=== PATIENT | female | born 1975 | race Caucasian/White ===

== ENCOUNTER → 2020-01-18 13:56 | Outpatient (BNVA) | payer BC, SELFPAY | PROVIDERS: Family Provider Nurse Practitioner Family; Visit Provider Nurse Practitioner Family | DX: R51 Headache (principal); J01.10 Acute frontal sinusitis, unspecified | CPT/HCPCS: 87804 ==

== ENCOUNTER → 2020-07-07 11:27 | Outpatient (BNVA) | payer BC, SELFPAY | PROVIDERS: Family Provider Nurse Practitioner Family; Visit Provider Family Medicine | DX: I10 Essential (primary) hypertension (principal); E03.9 Hypothyroidism, unspecified | CPT/HCPCS: 80053; 80061; 82043; 85025 ==

== ENCOUNTER → 2020-08-18 08:55 | Outpatient (BNVA) | payer BC, MEDICAID, SELFPAY | PROVIDERS: Family Provider Nurse Practitioner Family; Visit Provider Family Medicine | DX: E03.9 Hypothyroidism, unspecified (principal); Z20.2 Contact with and (suspected) exposure to infections with a predominantly sexual mode of transmission | CPT/HCPCS: 84443; 86592; 87491; 87591; 87661; 87806 ==

== ENCOUNTER → 2020-09-09 09:13 | Outpatient (BNVA) | payer BC, SELFPAY | PROVIDERS: Family Provider Nurse Practitioner Family; Visit Provider Family Medicine | DX: Z12.31 Encounter for screening mammogram for malignant neoplasm of breast (principal); Z01.419 Encounter for gynecological examination (general) (routine) without abnormal findings | CPT/HCPCS: 87070; 87205 ==

== ENCOUNTER 2020-09-20 08:13 | Outpatient (CLI) | payer BC, SELFPAY ==
--- NOTE | 2020-09-20 08:30 | MM_ITS ---
WS: [id number] Bilateral screening digital mammogram, 09/20/2020 Clinical Data: screening mammogram Comparison: None. Findings: The breast parenchymal pattern shows fibroglandular tissue No spiculated masses or clustered calcific ations are seen. There are no secondary signs of carcinoma. MM/[place] [id number] Impression: 1. Negative bilateral mammogram with no prior mammograms for review. 2. Recommend annual screening mammograms. BIRADS: 1-Negative FOLLOW UP: 1 Year Follow-up The CAD baggage security checker was used.
== END 2020-09-20 08:14 | disposition home or self-care (01) ==
PROVIDERS: PCP Family Medicine; Visit Provider Family Medicine
DX: Z12.31 Encounter for screening mammogram for malignant neoplasm of breast (principal)
CPT/HCPCS: 77067

== ENCOUNTER → 2021-03-08 09:17 | Outpatient (BNVA) | payer BC, SELFPAY | PROVIDERS: PCP Family Medicine; Visit Provider Family Medicine | DX: R60.0 Localized edema (principal) | CPT/HCPCS: 80048 ==

== ENCOUNTER → 2021-09-02 14:12 | Outpatient (BNVA) | payer BC, SELFPAY | PROVIDERS: PCP Family Medicine; Visit Provider Family Medicine | DX: I10 Essential (primary) hypertension (principal); K12.0 Recurrent oral aphthae; E03.9 Hypothyroidism, unspecified | CPT/HCPCS: 80053; 82043; 84443; 85025 ==

== ENCOUNTER → 2022-05-17 11:25 | Outpatient (BNVA) | payer BC, MEDICAID, SELFPAY | PROVIDERS: PCP Family Medicine; Visit Provider Family Medicine | DX: E03.9 Hypothyroidism, unspecified (principal) | CPT/HCPCS: 84443 ==

== ENCOUNTER → 2022-09-04 15:57 | Outpatient (BNVA) | payer BC, MEDICAID, SELFPAY | PROVIDERS: PCP Family Medicine; Visit Provider Family Medicine | DX: R35.0 Frequency of micturition (principal); Z13.6 Encounter for screening for cardiovascular disorders | CPT/HCPCS: 81003; 87086 ==

== ENCOUNTER → 2022-09-05 08:25 | Outpatient (BNVA) | payer BC, SELFPAY | PROVIDERS: PCP Family Medicine; Visit Provider Family Medicine | DX: Z13.6 Encounter for screening for cardiovascular disorders (principal) | CPT/HCPCS: 80053; 80061; 85025 ==

== ENCOUNTER → 2022-09-19 14:10 | Outpatient (BNVA) | payer BC, MEDICAID, SELFPAY | PROVIDERS: PCP Family Medicine; Visit Provider Family Medicine | DX: Z20.2 Contact with and (suspected) exposure to infections with a predominantly sexual mode of transmission (principal); N89.8 Other specified noninflammatory disorders of vagina | CPT/HCPCS: 87070; 87205; 87491; 87591; 87661 ==

== ENCOUNTER 2022-10-13 12:55 | Outpatient (CLI) | payer BC, MEDICAID, SELFPAY ==
--- NOTE | 2022-10-13 12:59 | MM_ITS ---
WS: [id number] BILATERAL 3D TOMOSYNTHESIS DIGITAL SCREENING MAMMOGRAPHY WITH CAD CLINICAL INFORMATION: screening mammogram HISTORY: Screening mammogram. Bilateral breast soreness COMPARISON: September 20, 2020 TECHNIQUE: Bilateral CC and MLO views. FINDINGS: Scattered fibroglandular densities bilaterally. No suspicious focal mass, asymmetry, calcifications, or architectural distortion. No evidence of malignancy. Punctate and lucent centered calcifications. MM/[id number] IMPRESSION: BI-RADS: 2-Benign FOLLOW UP: 1 Year Follow-up Recommend return to annual screening mammography.
== END 2022-10-13 12:56 | disposition home or self-care (01) ==
LOC: RAD 12:56
PROVIDERS: PCP Family Medicine; Visit Provider Family Medicine
DX: Z12.31 Encounter for screening mammogram for malignant neoplasm of breast (principal)
CPT/HCPCS: 77063; 77067

== ENCOUNTER → 2022-11-21 08:22 | Outpatient (BNVA) | payer BC, MEDICAID, SELFPAY | PROVIDERS: PCP Family Medicine; Visit Provider Family Medicine | DX: E03.9 Hypothyroidism, unspecified (principal); J30.2 Other seasonal allergic rhinitis; R60.0 Localized edema; I10 Essential (primary) hypertension | CPT/HCPCS: 84439; 84443 ==

== ENCOUNTER → 2023-08-10 08:43 | Outpatient (BNVA) | payer BC, MEDICAID, SELFPAY | PROVIDERS: PCP Family Medicine; Visit Provider Family Medicine | DX: I10 Essential (primary) hypertension (principal); E03.9 Hypothyroidism, unspecified; R06.2 Wheezing; Z12.31 Encounter for screening mammogram for malignant neoplasm of breast; J30.2 Other seasonal allergic rhinitis | CPT/HCPCS: 80053; 80061; 82043; 84443; 85025 ==

== ENCOUNTER 2023-10-22 07:57 | Outpatient (CLI) | payer BC, OTHER, SELFPAY ==
--- NOTE | 2023-10-22 08:02 | MM_ITS ---
WS: [id number] BILATERAL SCREENING DIGITAL TOMOSYNTHESIS MAMMOGRAM WITH CAD HISTORY: screening COMPARISON: 10/13/2022 and 09/20/2020 Bilateral CC and MLO views with tomosynthesis and synthetic mammography submitted. Computer aided det ection analyzed. Breast composition: There are scattered areas of fibroglandular density. No suspicious masses, microc alcifications or architectural distortion. Benign calcifications. IMPRESSION: MM/[place] [id number] BI-RADS: 2-Benign FOLLOW UP: 1 Year Follow-up
== END 2023-10-22 07:58 | disposition home or self-care (01) ==
LOC: RAD 07:58
PROVIDERS: PCP Family Medicine; Visit Provider Family Medicine
DX: Z12.31 Encounter for screening mammogram for malignant neoplasm of breast (principal)
CPT/HCPCS: 77063; 77067

== ENCOUNTER → 2024-01-29 13:53 | Outpatient (BNVA) | payer BC, MEDICAID, SELFPAY ==
[2023-11-08 10:43] VITALS: BP 139/71; BMI 54.5
== END ==
PROVIDERS: PCP Family Medicine; Referring Provider Nurse Practitioner Psychiatric/Mental Health; Visit Provider Internal Medicine
DX: Z79.899 Other long term (current) drug therapy (principal)
CPT/HCPCS: 93005

== ENCOUNTER → 2024-02-01 08:31 | Outpatient (BNVA) | payer BC, MEDICAID, SELFPAY ==
[2023-11-08 10:43] VITALS: BP 139/71; BMI 54.5
== END ==
PROVIDERS: PCP Family Medicine; Visit Provider Family Medicine
DX: E03.9 Hypothyroidism, unspecified (principal); I10 Essential (primary) hypertension; R60.0 Localized edema; J30.2 Other seasonal allergic rhinitis; N39.46 Mixed incontinence; R06.2 Wheezing
CPT/HCPCS: 84443

== ENCOUNTER 2024-07-30 08:05 | Day surgery (SDC) | payer BC, MEDICAID, SELFPAY ==
[2024-05-22 10:03] VITALS: BP 126/76; BMI 56.9
--- NOTE | 2024-07-30 01:59 | ANES.PREANE2 ---
Pre-Anesthetic Assessment Height/Weight: Height 5 ft 4 in Preop Diagnosis: Screening colonoscopy Operation Date: 07/30/24 09:15 Proposed Procedures p EGD- 99345 , 21693, G0105, Z12.11 , K21.9(Not Applicable) - DO christa Wallis Colonoscopy(Not Applicable) - Luke Edwards DO Social No alcohol and No tobacco Airway Submandibular: within normal limits Cervical ROM: within normal limits Mallampati: Class IV Dentition: full Anesthetic Plan ASA status: 3 Anesthesia: MAC Other: No prior issues with anesthesia Completed bowel prep History of hypertension on amlodipine and hydrochlorothiazide, as well as as metoprolol Hypothyroidism on Synthroid 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 Occasional inhalers GERD on Protonix BMI 57 Plan for MAC anesthetic Medications/Allergies Home Medications Medication Instructions Recorded Confirmed Last Taken Type cholecalciferol (vitamin D3) 50 50 mcg PO DAILY 02/09/21 07/29/24 07/29/24 History mcg (2,000 unit) capsule albuterol sulfate 90 mcg/actuation 2 puff inhalation Q6H PRN 09/07/23 07/29/24 07/29/24 Rx aerosol inhaler (Ventolin HFA) shortness of breath or wheezing #8.5 grams amlodipine 2.5 mg tablet (Norvasc) 2.5 mg PO DAILY #30 tabs 02/01/24 07/29/24 07/29/24 Rx divalproex 500 mg tablet,delayed 500 mg PO .7 pm #30 tabs 05/22/24 07/29/24 07/29/24 Rx release (Depakote) pantoprazole 40 mg tablet,delayed 40 mg PO BID 6 weeks #84 tabs 06/23/24 07/29/24 07/29/24 Rx release (Protonix) hydrochlorothiazide 25 mg tablet 25 mg PO DAILY 07/28/24 07/29/24 07/29/24 History levothyroxine 100 mcg tablet 100 mcg PO DAILY 07/28/24 07/29/24 07/30/24 07:00 History metoprolol succinate 25 mg 25 mg PO BEDTIME 07/28/24 07/29/24 07/29/24 History tablet,extended release 24 hr montelukast 10 mg tablet 10 mg PO BEDTIME 07/28/24 07/29/2407/29/24 History oxybutynin chloride 5 mg tablet 5 mg PO BID 07/28/24 07/29/24 07/29/24 History triamcinolone acetonide 0.1 % 1 applic topical TID PRN Itching 07/28/24 07/29/24 07/29/24 History topical cream Allergies Allergy/AdvReac Type Severity Reaction Status Date / Time ketorolac [From Toradol] AdvReac Severe unknown Verified 07/29/24 08:59 [facility] Anesthesia Medical History Screening for colon cancer 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, mixed episodes ADHD (attention deficit hyperactivity disorder), inattentive type Chronic post-traumatic stress disorder JEMAL (generalized anxiety disorder) Psychiatric care Hypothyroid Essential hypertension Surgical History History of lung surgery H/O: hysterectomy History of cholecystectomy Family History Other CAD (coronary artery disease) Lung disease Thyroid disease Social History Smoking and tobacco/nicotine status: never used tobacco/nicotine Alcohol intake: current Alcohol intake frequency: holidays/special occasions only Alcohol type: wine Substance/Drug Use: never Data Anesthesia Cardiac Studies: Cardiac Event Monitor 10/24/21
[2024-07-30 08:23] VITALS: BP 147/86; PULSE 74; RESP 18; TEMP 36.1; O2SAT 93; BMI 56.6
[2024-07-30] MEDS: sodium chloride 0.9% 1,000 ML 30 ML IV (08:30)
--- NOTE | 2024-07-30 09:13 | PM.HP ---
Providers/Chief Complaint Primary Care Provider: Ashlee Swanson DO Chief Complaint: Z12.11, K21.9 History of Present Illness Isabela Michaels is a 49 year old female Review of Systems General: Reports: 10 or more systems reviewed and unremarkable except in HPI and below Medications/Allergies Home Medications Medication Instructions Recorded Confirmed Last Taken Type cholecalciferol (vitamin D3) 50 50 mcg PO DAILY 02/09/21 07/29/24 07/29/24 History mcg (2,000 unit) capsule albuterol sulfate 90 mcg/actuation 2 puff inhalation Q6H PRN 09/07/23 07/29/24 07/29/24 Rx aerosol inhaler (Ventolin HFA) shortness of breath or wheezing #8.5 grams amlodipine 2.5 mg tablet (Norvasc) 2.5 mg PO DAILY #30 tabs 02/01/24 07/29/24 07/29/24 Rx divalproex 500 mg tablet,delayed 500 mg PO .7 pm #30 tabs 05/22/24 07/29/24 07/29/24 Rx release (Depakote) pantoprazole 40 mg tablet,delayed 40 mg PO BID 6 weeks #84 tabs 06/23/24 07/29/24 07/29/24 Rx release (Protonix) hydrochlorothiazide 25 mg tablet 25 mg PO DAILY 07/28/24 07/29/24 07/29/24 History levothyroxine 100 mcg tablet 100 mcg PO DAILY 07/28/24 07/29/24 07/30/24 07:00 History metoprolol succinate 25 mg 25 mg PO BEDTIME 07/28/24 07/29/24 07/29/24 History tablet,extended release 24 hr montelukast 10 mg tablet 10 mg PO BEDTIME 07/28/24 07/29/24 07/29/24 History oxybutynin chloride 5 mg tablet 5 mg PO BID 07/28/24 07/29/24 07/29/24 History triamcinolone acetonide 0.1 % 1 applic topical TID PRN Itching 07/28/24 07/29/24 07/29/24 History topical cream Allergies Allergy/AdvReac Type Severity Reaction Status Date / Time ketorolac [From Toradol] AdvReac Severe unknown Verified 07/29/24 08:59 PFSH Acute PFSH: Medical History Screening for colon cancer 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, mixed episodes ADHD (attention deficit hyperactivity disorder), inattentive type Chronic post-traumatic stress disorder JEMAL (generalized anxiety disorder) Psychiatric care Hypothyroid Essential hypertension Surgical History History of lung surgery H/O: hysterectomy History of cholecystectomy Family History Other CAD (coronary artery disease) Lung disease Thyroid disease Social History Smoking and tobacco/nicotine status: never used tobacco/nicotine Alcohol intake: current Alcohol intake frequency: holidays/special occasions only Alcohol type: wine Substance/Drug Use: never Vitals/I&O/Wt Last Vital Signs Temp 97 F L 07/30/24 08:23 Pulse 74 07/30/24 08:23 Resp 18 07/30/24 08:23 BP 147/86 07/30/24 08:23 Pulse Ox 93 07/30/24 08:23 O2 Del Method Room Air 07/30/24 08:23 Weight last 48 hrs Weight 330 lb A&P Assessment and plan (1) GI bleed: (2) GERD (gastroesophageal reflux disease): (3) Screening for colon cancer: Plan EGD and colonoscopy Attestations Medical Necessity Statement*: Home Coding Level of Care Code Acute Code for Chg Fwd Diagnoses GI bleed K92.2 GERD (gastroesophageal reflux disease) K21.9 Screening for colon cancer Z12.11
[2024-07-30 09:38] VITALS: BP 133/92; PULSE 73; RESP 16; TEMP 36.3; O2SAT 98
[2024-07-30 09:46] VITALS: BP 138/78; PULSE 79; RESP 18; O2SAT 98
--- NOTE | 2024-07-30 10:15 | ANE.PACU2 ---
Inpatient post-anesthesia follow up: Airway intact: Yes Vital signs: Temperature 97.3 F Pulse Rate 79 Respiratory Rate 18 Blood Pressure 138/78 Pulse Oximetry 98 Oxygen Delivery Me thod Room Air Oxygen Flow Rate Fraction of Inspir ed Oxygen Hydration adequate: Yes Nausea and vomiting: No Pain level: 1 Mental status: Baseline
== END 2024-07-30 10:15 | disposition home or self-care (01) ==
PROVIDERS: PCP Family Medicine; Visit Provider Surgery
PROC: 0DJ08ZZ Inspection of Upper Intestinal Tract, Via Natural or Artificial Opening Endoscopic (ICD-10-PCS; CPT 43235; principal; 2024-07-30 09:15)
PROC: 0DJD8ZZ Inspection of Lower Intestinal Tract, Via Natural or Artificial Opening Endoscopic (ICD-10-PCS; CPT 45378; 2024-07-30 09:15)
DX: Z12.11 Encounter for screening for malignant neoplasm of colon (principal); K64.8 Other hemorrhoids; K29.50 Unspecified chronic gastritis without bleeding; K21.9 Gastro-esophageal reflux disease without esophagitis; E03.9 Hypothyroidism, unspecified; I10 Essential (primary) hypertension
CPT/HCPCS: 43239; 45378; 88305; 88342; J2704; J3490; J7030

== ENCOUNTER → 2024-08-19 14:12 | Outpatient (BNVA) | payer BC, OTHER, SELFPAY ==
[2024-05-22 10:03] VITALS: BP 126/76; BMI 56.9
== END ==
PROVIDERS: PCP Family Medicine; Visit Provider Internal Medicine
DX: I49.8 Other specified cardiac arrhythmias (principal); I49.1 Atrial premature depolarization; R07.9 Chest pain, unspecified; Q24.8 Other specified congenital malformations of heart; R94.31 Abnormal electrocardiogram [ECG] [EKG]
CPT/HCPCS: 93005

== ENCOUNTER 2024-09-23 07:43 | Outpatient (CLI) | payer BC, OTHER, SELFPAY ==
[2024-05-22 10:03] VITALS: BP 126/76; BMI 56.9
--- NOTE | 2024-09-23 07:45 | USCV_ITS ---
BrandoIsabela menendez Age: 49 Gender: F : 1975 Exam Date: 09/23/2024 07:51 Ordering Phys: Dean Gurrola M.D ([email or web address]) Technologist: [place] [facility] [place] sob cp BP: 150 / 80 HR: 73 Rhythm: Sinus Technical Quality: Adequate MEASUREMENTS (Male / Female) Normal Values 2D ECHO LV Diastolic Diameter PLAX 5.2 cm 4.2 - 5.9 / 3.9 - 5.3 cm IVS Diastolic Thickness 1.3 cm 0.6 - 1.0 / 0.6 - 0.9 cm IVS Systolic Thickness 1.4 cm LVPW Diastolic Thickness 1.1 cm 0.6 - 1.0 / 0.6 - 0.9 cm LVPW Systolic Thickness 1.8 cm LVOT Diameter 2.0 cm LV Ejection Fraction 2D Teich 65.6 % LV Ejection Fraction MOD 4C 59.1 % LA Diameter 4.4 cm RA Systolic Volume 4C AL 47.0 ml RA Systolic Volume 4C MOD 46.1 ml Aorta at Sinotubular Diameter 3.1 cm IVC Diameter 2.3 cm DOPPLER AV Peak Velocity 129.0 cm/s LVOT Peak Velocity 74.0 cm/s AV Area Cont Eq vti 2.0 cm squared AV Area Cont Eq pk 1.9 cm squared MV Peak Velocity 109.0 cm/s MV Area PHT 3.0 cm squared Mitral E to A Ratio 1.3 TV Peak Velocity 206.3 cm/s TR Peak Velocity 316.0 cm/s TR Peak Gradient 39.9 mmHg TV Peak E Velocity 125.0 cm/s Right Atrial Pressure 3.0 mmHg Pulmonary Artery Systolic Pressu 42.9 mmHg PV Peak Velocity 117.0 cm/s FINDINGS Left Ventricle Left ventricle is normal in size. LV systolic function is normal with EF of 55 to 60%. No regional wall motion abnormalities. Right Ventricle Normal in size and function Right Atrium Normal in size Left Atrium Normal in size Mitral Valve Structurally normal mitral valve. Trace mitral regurgitation. Aortic Valve Structurally normal aortic valve. No significant stenosis or regurgitation. Tricuspid Valve Mild tricuspid regurgitation. Pulmonary artery systolic pressure is 40 to 45 mmHg. This is consistent with mild pulmonary hypertension. Pulmonic Valve Not well visualized Pericardium Normal Aorta Normal in size IVC Grossly normal CONCLUSIONS LV systolic function is normal with EF of 55-60% Trace mitral regurgitation Mild tricuspid regurgitation Mild pulmonary hypertension No comparison studies are available. Dean Gurrola MD (Electronically Signed) Final Date: 04 October 2024 13:17 S
== END 2024-09-23 07:44 | disposition home or self-care (01) ==
LOC: RAD 07:43
PROVIDERS: Visit Provider Internal Medicine
DX: R06.02 Shortness of breath (principal)
CPT/HCPCS: 93306

== ENCOUNTER → 2024-11-26 08:24 | Outpatient (BNVA) | payer BC, OTHER, SELFPAY ==
[2024-05-22 10:03] VITALS: BP 126/76; BMI 56.9
== END ==
DX: E03.9 Hypothyroidism, unspecified (principal); N39.46 Mixed incontinence; I10 Essential (primary) hypertension
CPT/HCPCS: 80053; 84439; 84443

== ENCOUNTER → 2025-01-20 08:50 | Outpatient (BNVA) | payer BC, SELFPAY ==
[2024-05-22 10:03] VITALS: BP 126/76; BMI 56.9
== END ==
PROVIDERS: Visit Provider Nurse Practitioner Psychiatric/Mental Health
DX: Z79.899 Other long term (current) drug therapy (principal)
CPT/HCPCS: 80164

== ENCOUNTER 2025-02-23 20:00 | Outpatient (CLI) | payer BC, SELFPAY ==
[2024-05-22 10:03] VITALS: BP 126/76; BMI 56.9
== END 2025-02-23 20:01 | disposition home or self-care (01) ==
LOC: SLEEP 02-24 03:36
PROVIDERS: Visit Provider Internal Medicine
DX: G47.33 Obstructive sleep apnea (adult) (pediatric) (principal); G47.36 Sleep related hypoventilation in conditions classified elsewhere
CPT/HCPCS: 95810

== ENCOUNTER → 2025-03-23 10:07 | Outpatient (BNVA) | payer BC, SELFPAY ==
[2024-05-22 10:03] VITALS: BP 126/76; BMI 56.9
== END ==
DX: E03.9 Hypothyroidism, unspecified (principal)
CPT/HCPCS: 80053; 84439; 84443

== ENCOUNTER 2025-04-02 14:16 | Emergency (ER) | payer BC, SELFPAY ==
[2025-04-02] VITALS (8 sets, daily range): BP systolic 126–172; BP diastolic 76–121; PULSE 70–87; RESP 18–22; TEMP 36.7; O2SAT 92–98; BMI 56.9
--- NOTE | 2025-04-02 14:20 | ECG_ITS ---
[facility] Date: 2025-04-02 Pat Name: Isabela Michaels Department: Room: Gender: Female Job Tr[employer]: : 1975 Requested By: Zak Valle Order Number: [id number] Sherwin MD: Amanda Jalloh M.D. Measurements Intervals [place] Rate: 81 P: 71 VT: 135 QRS: -32 QRSD: 90 T: 55 QT: 359 QTc: 419 Interpretive Statements SINUS RHYTHM LEFT AXIS DEVIATION [QRS AXIS < -30] LOW QRS VOLTAGE IN PRECORDIAL LEADS [QRS DEFLECTION < 1.0 mV IN CHEST LEADS] POSSIBLE ANTERIOR MYOCARDIAL INFARCTION , PROBABLY OLD [30 ms Q WAVE IN V3/V4, OR R < 0.2 mV IN V4] Compared to ECG 08/19/2024 14:20:51 Left-axis deviation now present Myocardial infarct finding still present Electronically Signed On 04-02-2025 18:01:27 CDT by Amanda Jalloh M.D. [email or web address]
--- NOTE | 2025-04-02 14:20 | XR_ITS ---
WS: [id number] Portable AP upright chest, 04/02/2025 Clinical Data: dyspnea/cough Comparison: None. Findings: There is complete opacification of the left lung. There is a shift of the mediastinum from right to left. The right lung shows no nodules, masses or effusions. The pulmonary vascularity is not increased. XR/XR chest 1V portable [id number] Impression: 1. Total opacification of left lung with shift of the heart and mediastinum fro m right to left. 2. Recommend CT scan of the chest to evaluate for left lung mass.
--- NOTE | 2025-04-02 14:36 | W.ED.SOB ---
Documented by User: Zak Connolly, 04/06/25 14:47 HPI - SOB/Dyspnea General: Chief Complaint: Shortness of Breath/Dyspnea Stated Complaint: SOB Time Seen by Provider: 04/02/25 14:19 History of Present Illness: HPI Narrative: 49-year-old female presents emergency room with complaint of cough and shortness of breath. 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 Evidently she did not require any kind chemo or radiation afterwards. I do not find any other documented history in the chart regarding this. She was seen by her primary care doctor today and her oxygen sat was in the 80s on arrival here she is on 3 L turned her down to 2 she meditated sats in the upper 90s. She denies any chest pain she has had productive cough no hemoptysis. No fever no abdominal pain Associated symptoms: Reports chest congestion; Deny abdominal pain, chest pain or fever(s) Related Data Home Medications ?Medication ?Instructions ?Recorded ?Confirmed cholecalciferol (vitamin D3) 50 50 mcg PO DAILY 02/09/21 04/02/25 mcg (2,000 unit) capsule triamcinolone acetonide 0.1 % 1 applic topical TID PRN Itching 07/28/24 04/02/25 topical cream guaifenesin 100 mg/5 mL oral liquid 200 mg PO Q4H PRN Cough 04/02/25 04/02/25 Previous Rx's ?Medication ?Instructions ?Recorded divalproex 500 mg tablet,delayed 500 mg PO .7 pm #30 tabs 01/20/25 release (Depakote) albuterol sulfate 90 mcg/actuation 2 puff inhalation Q6H PRN 03/23/25 aerosol inhaler (Ventolin HFA) shortness of breath or wheezing #8.5 grams amlodipine 2.5 mg tablet (Norvasc) 2.5 mg PO DAILY #30 tabs 03/23/25 hydrochlorothiazide 25 mg tablet 25 mg PO DAILY #30 tabs 03/23/25 levothyroxine 100 mcg tablet 100 mcg PO DAILY #30 tabs 03/23/25 metoprolol succinate 25 mg 25 mg PO BEDTIME #30 tabs 03/23/25 tablet,extended release 24 hr montelukast 10 mg tablet 10 mg PO BEDTIME #30 tabs 03/23/25 oxybutynin chloride 5 mg tablet 5 mg PO BID #60 tabs 03/23/25 levofloxacin 750 mg tablet 750 mg PO DAILY 10 days #10 tabs 04/02/25 Allergies Allergy/AdvReac Type Severity Reaction Status Date / Time ketorolac (From Toradol) AdvReac Severe unknown Verified 04/02/25 13:08 Review of Systems Const: Denies: fever(s) or chills Card: Denies: chest pain Resp: Reports: dyspnea, productive cough and chest congestion GI: Denies: abdominal pain : Denies: dysuria, urinary frequency or urinary urgency Musc: Denies: neck pain or back pain Skin/Breast: Denies: rash PFSH ED PFSH: Medical History Screening for colon cancer 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, mixed episodes Chronic post-traumatic stress disorder JEMAL (generalized anxiety disorder) Psychiatric care Hypothyroid Essential hypertension Surgical History History of lung surgery H/O: hysterectomy History of cholecystectomy Family History Other CAD (coronary artery disease) Lung disease Thyroid disease Social History Smoking and tobacco/nicotine status: never used tobacco/nicotine Alcohol intake: current Alcohol intake frequency: holidays/special occasions only Alcohol type: wine Substance/Drug Use: never Physical Exam Const: COMMON NORMALS: no acute distress GENERAL APPEARANCE: cooperative and comfortable ORIENTATION/CONSCIOUSNESS: Yes awake, Yes oriented to person, Yes oriented to place and Yes oriented to time HENMT: COMMON NORMALS: normocephalic, atraumatic and hearing grossly normal bilaterally HEAD & SCALP: normocephalic and atraumatic Resp: COMMON NORMALS: normal respiratory effort, No retractions and No use of accessory muscles OTHER: Lung sounds absent on the left significant rhonchi and wheeze on the right base. Cardio: COMMON NORMALS: regular rate, regular rhythm and No murmurs present (Cardio) RATE: regular rate RHYTHM: regular rhythm GI: COMMON NORMALS: Soft to palpation and No hepatosplenomegaly present AUSCULTATION: Yes normoactive bowel sounds PALPATION: Yes Soft to palpation, No Tenderness to palpation present (GI), No Guarding due to palpation present (GI) and Yes No hepatosplenomegaly present Extremity: COMMON NORMALS: capillary refill normal and no calf tenderness GENERAL: Yes edema (Bilateral lower) Neuro: SENSORIUM/ORIENTATION: Yes oriented to person, Yes oriented to place and Yes oriented to time Skin: COMMON NORMALS: no rashes or lesions noted GENERAL SKIN EXAM: no rashes or lesions noted Course Vital Signs: Vital signs: Vital Signs Temperature 98.1 F 04/02/25 14:36 Pulse Rate 87 04/02/25 22:15 Respiratory Rate 18 04/02/25 22:15 Blood Pressure 141/79 04/02/25 22:15 Pulse Oximetry 92 04/02/25 22:15 Oxygen Delivery Me thod Room Air 04/02/25 21:23 Oxygen Flow Rate 3 04/02/25 19:09 MDM - SOB/Dyspnea Medical Decision Making Care signed out to Dr. lambert at change of shift. See final notes for diagnosis and disposition. 49-year-old female presents to the emergency department for evaluation of shortness of breath and productive cough. Her CT was positive for signs of pneumonia. Given the patient's history patient was started on Levaquin. Her labs did not demonstrate elevated white count, her hemoglobin was normal, electrolytes were normal, kidney function was near baseline, urinalysis did not show signs of infection. Patient was able to maintain an O2 saturation between 88 and 92%. Given the fact that she has a single lung and an infection this is an acceptable oxygenation. Treatment plan was discussed with the patient and she was in agreement with this plan. Return precautions were discussed and the patient was discharged home in good condition. Lab Data 04/02/25 16:38 04/02/25 16:38 Labs/Radiology: Radiology Impressions Chest X-Ray 04/02/25 14:20 Impression: 1. Total opacification of left lung with shift of the heart and mediastinum from right to left. 2. Recommend CT scan of the chest to evaluate for left lung mass. Chest CT 04/02/25 20:16 IMPRESSION: 1. Status post left pneumonectomy with leftward mediastinal shift from left hemithoracic volume loss. 2. Patchy ground-glass opacities and tree-in-bud nodularity in the right lung likely represent atypical infection/inflammation. Focal consolidation in the medial right lower lobe could also represent infection. Consider imaging follow-up after clinical treatment to document resolution. 3. Mildly enlarged mediastinal and right hilar lymph nodes may be reactive. Attention on follow-up. 4. Mild mosaic attenuation in the right lung could represent mild edema and/or atypical infection in the acute setting common but findings can also be seen with air trapping from chronic small airways disease. 5. Dilated main pulmonary artery can be seen with pulmonary arterial hypertension. 6. Splenomegaly. 7. Hepatic steatosis. Laboratory Results WBC 5.33 10^3/uL (3.29-11.43) 04/02/25 16:38 Corrected WBC Cancelled 04/02/25 15:24 RBC 4.41 10^6/uL (3.85-5.65) 04/02/25 16:38 Hgb 13.80 g/dL (11.27-16.99) 04/02/25 16:38 Hct 43.2 % (36-47) 04/02/25 16:38 MCV 98.0 fl (85-98) 04/02/25 16:38 MCH 31.3 pg (27-33) 04/02/25 16:38 MCHC 31.9 g/dL (30-55) 04/02/25 16:38 RDW 14.2 % (12.1-15.1) 04/02/25 16:38 Plt Count 245 10^3/cmm (157-399) 04/02/25 16:38 MPV 11.2 fL (7.4-10.4) H 04/02/25 16:38 Gran % Cancelled 04/02/25 15:24 Neut % (Auto) 60.9 % 04/02/25 16:38 Lymph % (Auto) 19.9 % 04/02/25 16:38 [place] % (Auto) 16.3 % 04/02/25 16:38 Eos % (Auto) 1.9 % 04/02/25 16:38 Baso % (Auto) 0.8 % 04/02/25 16:38 Neut # (Auto) 3.25 10^3/uL (1.8-7.7) 04/02/25 16:38 Lymph # (Auto) 1.1 10^3/uL (0.8-4.8) 04/02/25 16:38 [place] # (Auto) 0.9 10^3/uL (0.2-0.9) 04/02/25 16:38 Eos # (Auto) 0.1 10^3/uL (0.0-0.8) 04/02/25 16:38 Baso # (Auto) 0.0 10^3/uL (0.0-0.1) 04/02/25 16:38 Absolute Gran (auto) Cancelled 04/02/25 15:24 Nucleated RBC % (auto) 0 % 04/02/25 16:38 Nucleated RBCs # 0.0 /100WBC 04/02/25 16:38 Sodium 141 mmol/L (136-145) 04/02/25 16:38 Potassium 3.9 mmol/L (3.5-5.1) 04/02/25 16:38 Chloride 97 mmol/L (98-107) L 04/02/25 16:38 Carbon Dioxide 31 mmol/L (22-29) H 04/02/25 16:38 Anion Gap 16.9 (5-19) 04/02/25 16:38 BUN 11 mg/dL (6-20) 04/02/25 16:38 Creatinine 0.8 mg/dL (0.5-0.9) 04/02/25 16:38 GFR Calculation 76.2 mL/min (90-130) L 04/02/25 16:38 Glucose 85 mg/dL (65-115) 04/02/25 16:38 Calculated Osmolality 291 mOsm/kg (285-295) 04/02/25 16:38 Calcium 8.5 mg/dL (8.5-10.5) 04/02/25 16:38 Total Bilirubin 0.3 mg/dL (0.15-1.2) 04/02/25 16:38 AST 18 U/L (0-32) 04/02/25 16:38 ALT 15 U/L (0-33) 04/02/25 16:38 Alkaline Phosphatase 62 U/L (35-105) 04/02/25 16:38 Total Protein 7.6 g/dL (6.6-8.7) 04/02/25 16:38 Albumin 3.9 g/dL (3.5-5.2) 04/02/25 16:38 Globulin 3.7 g/dL (1.3-4.6) 04/02/25 16:38 Urine Color Yellow (Yellow) 04/02/25 16:06 Urine Appearance Clear (CLEAR) 04/02/25 16:06 Urine pH 7.0 (5-7) 04/02/25 16:06 Ur Specific [place] 1.014 (1.005-1.030) 04/02/25 16:06 Urine Protein Negative (Negative) 04/02/25 16:06 Urine Glucose (UA) Negative (Normal) 04/02/25 16:06 Urine Ketones Negative (Negative) 04/02/25 16:06 Urine Blood Negative (Negative) 04/02/25 16:06 Urine Nitrate Negative (Negative) 04/02/25 16:06 Urine Bilirubin Negative (Negative) 04/02/25 16:06 Urine Urobilinogen 1.0 mg/dL (Negative) 04/02/25 16:06 Ur Leukocyte Esterase Negative (Negative) 04/02/25 16:06 Urine RBC 0-2 /hpf (0-2) 04/02/25 16:06 Urine WBC 0-5 /hpf (0-5) 04/02/25 16:06 Ur Squamous Epith Cells 0-5 /hpf (0-5) 04/02/25 16:06 Amorphous Sediment Not Reportable 04/02/25 16:06 Urine Bacteria None seen /hpf (NONE) 04/02/25 16:06 Hyaline Casts 1.65 /lpf 04/02/25 16:06 Discharge Plan Discharge Patient Disposition: Home Clinical Impression: Community acquired pneumonia Qualifiers: Laterality: right Lung location: middle lobe of lung Qualified Code(s): J18.9 - Pneumonia, unspecified organism Condition: Stable Prescriptions: New levofloxacin 750 mg tablet 750 mg PO DAILY 10 Days Qty: 10 0RF No Action cholecalciferol (vitamin D3) 50 mcg (2,000 unit) capsule 50 mcg PO DAILY divalproex [Depakote] 500 mg tablet,delayed release (DR/EC) 500 mg PO .7 pm Qty: 30 6RF Rx Instructions: Take one tablet at 7 pm oxybutynin chloride 5 mg tablet 5 mg PO BID Qty: 60 2RF montelukast 10 mg tablet 10 mg PO BEDTIME Qty: 30 0RF Rx Instructions: Take 1 tablet by mouth once daily amlodipine [Norvasc] 2.5 mg tablet 2.5 mg PO DAILY Qty: 30 5RF hydrochlorothiazide 25 mg tablet 25 mg PO DAILY Qty: 30 2RF levothyroxine 100 mcg tablet 100 mcg PO DAILY Qty: 30 2RF metoprolol succinate 25 mg tablet extended release 24 hr 25 mg PO BEDTIME Qty: 30 2RF albuterol sulfate [Ventolin HFA] 90 mcg/actuation HFA aerosol inhaler 2 puff inhalation Q6H PRN (Reason: shortness of breath or wheezing) Qty: 8.5 3RF triamcinolone acetonide 0.1 % cream 1 applic topical TID PRN (Reason: Itching) guaifenesin [Robitussin Chest Congestion] 100 mg/5 mL Liquid 200 mg PO Q4H PRN (Reason: Cough) Discharge Orders: Discharge ED (Routine); Ordered 04/02/25 Ordered By: Oliver Lambert Referrals: Maria M Luna, CHILD CARE DEVELOPMENT SPECIALIST [Primary Care Provider, Family Practice] Discharge Diet: Advance as tolerated Discharge Activity: Resume usual activity Patient Instructions: Opioid Safety, Pain Management Activity Restrictions/Additional Instructions: Please follow-up with your primary care physician for follow-up on your pneumonia. Please return the emergency department any new or worsening symptoms Print Language: Italian Coding Level of Care Code ED Traffic Safety Administrator for [facility]g Fwd Documented by User: Oliver Lambert DO 04/03/25 18:21 HPI - SOB/Dyspnea General: Chief Complaint: Shortness of Breath/Dyspnea Stated Complaint: SOB Time Seen by Provider: 04/02/25 14:19 Related Data Home Medications ?Medication ?Instructions ?Recorded ?Confirmed cholecalciferol (vitamin D3) 50 50 mcg PO DAILY 02/09/21 04/02/25 mcg (2,000 unit) capsule triamcinolone acetonide 0.1 % 1 applic topical TID PRN Itching 07/28/24 04/02/25 topical cream guaifenesin 100 mg/5 mL oral liquid 200 mg PO Q4H PRN Cough 04/02/25 04/02/25 Previous Rx's ?Medication ?Instructions ?Recorded divalproex 500 mg tablet,delayed 500 mg PO .7 pm #30 tabs 01/20/25 release (Depakote) albuterol sulfate 90 mcg/actuation 2 puff inhalation Q6H PRN 03/23/25 aerosol inhaler (Ventolin HFA) shortness of breath or wheezing #8.5 grams amlodipine 2.5 mg tablet (Norvasc) 2.5 mg PO DAILY #30 tabs 03/23/25 hydrochlorothiazide 25 mg tablet 25 mg PO DAILY #30 tabs 03/23/25 levothyroxine 100 mcg tablet 100 mcg PO DAILY #30 tabs 03/23/25 metoprolol succinate 25 mg 25 mg PO BEDTIME #30 tabs 03/23/25 tablet,extended release 24 hr montelukast 10 mg tablet 10 mg PO BEDTIME #30 tabs 03/23/25 oxybutynin chloride 5 mg tablet 5 mg PO BID #60 tabs 03/23/25 levofloxacin 750 mg tablet 750 mg PO DAILY 10 days #10 tabs 04/02/25 Allergies Allergy/AdvReac Type Severity Reaction Status Date / Time ketorolac (From Toradol) AdvReac Severe unknown Verified 04/02/25 13:08 [facility] ED PFSH: Medical History Screening for colon cancer 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, mixed episodes Chronic post-traumatic stress disorder JEMAL (generalized anxiety disorder) Psychiatric care Hypothyroid Essential hypertension Surgical History History of lung surgery H/O: hysterectomy History of cholecystectomy Family History Other CAD (coronary artery disease) Lung disease Thyroid disease Social History Smoking and tobacco/nicotine status: never used tobacco/nicotine Alcohol intake: current Alcohol intake frequency: holidays/special occasions only Alcohol type: wine Substance/Drug Use: never Course Vital Signs: Vital signs: Vital Signs Temperature 98.1 F 04/02/25 14:36 Pulse Rate 87 05/22/25 22:15 Respiratory Rate 18 04/02/25 22:15 Blood Pressure 141/79 04/02/25 22:15 Pulse Oximetry 92 04/02/25 22:15 Oxygen Delivery Me thod Room Air 04/02/25 21:23 Oxygen Flow Rate 3 04/02/25 19:09 MDM - SOB/Dyspnea Medical Decision Making 49-year-old female presents to the emergency department for evaluation of shortness of breath and productive cough. Her CT was positive for signs of pneumonia. Given the patient's history patient was started on Levaquin. Her labs did not demonstrate elevated white count, her hemoglobin was normal, electrolytes were normal, kidney function was near baseline, urinalysis did not show signs of infection. Patient was able to maintain an O2 saturation between 88 and 92%. Given the fact that she has a single lung and an infection this is an acceptable oxygenation. Treatment plan was discussed with the patient and she was in agreement with this plan. Return precautions were discussed and the patient was discharged home in good condition. Lab Data 04/02/25 16:38 04/02/25 16:38 Labs/Radiology: Radiology Impressions Chest X-Ray 04/02/25 14:20 Impression: 1. Total opacification of left lung with shift of the heart and mediastinum from right to left. 2. Recommend CT scan of the chest to evaluate for left lung mass. Chest CT 04/02/25 20:16 IMPRESSION: 1. Status post left pneumonectomy with leftward mediastinal shift from left hemithoracic volume loss. 2. Patchy ground-glass opacities and tree-in-bud nodularity in the right lung likely represent atypical infection/inflammation. Focal consolidation in the medial right lower lobe could also represent infection. Consider imaging follow-up after clinical treatment to document resolution. 3. Mildly enlarged mediastinal and right hilar lymph nodes may be reactive. Attention on follow-up. 4. Mild mosaic attenuation in the right lung could represent mild edema and/or atypical infection in the acute setting common but findings can also be seen with air trapping from chronic small airways disease. 5. Dilated main pulmonary artery can be seen with pulmonary arterial hypertension. 6. Splenomegaly. 7. Hepatic steatosis. Laboratory Results WBC 5.33 10^3/uL (3.29-11.43) 04/02/25 16:38 Corrected WBC Cancelled 04/02/25 15:24 RBC 4.41 10^6/uL (3.85-5.65) 04/02/25 16:38 Hgb 13.80 g/dL (11.27-16.99) 04/02/25 16:38 Hct 43.2 % (36-47) 04/02/25 16:38 MCV 98.0 fl (85-98) 04/02/25 16:38 MCH 31.3 pg (27-33) 04/02/25 16:38 MCHC 31.9 g/dL (30-55) 04/02/25 16:38 RDW 14.2 % (12.1-15.1) 04/02/25 16:38 Plt Count 245 10^3/cmm (157-399) 04/02/25 16:38 MPV 11.2 fL (7.4-10.4) H 04/02/25 16:38 Gran % Cancelled 04/02/25 15:24 Neut % (Auto) 60.9 % 04/02/25 16:38 Lymph % (Auto) 19.9 % 04/02/25 16:38 [place] % (Auto) 16.3 % 04/02/25 16:38 Eos % (Auto) 1.9 % 04/02/25 16:38 Baso % (Auto) 0.8 % 04/02/25 16:38 Neut # (Auto) 3.25 10^3/uL (1.8-7.7) 04/02/25 16:38 Lymph # (Auto) 1.1 10^3/uL (0.8-4.8) 04/02/25 16:38 [place] # (Auto) 0.9 10^3/uL (0.2-0.9) 04/02/25 16:38 Eos # (Auto) 0.1 10^3/uL (0.0-0.8) 04/02/25 16:38 Baso # (Auto) 0.0 10^3/uL (0.0-0.1) 04/02/25 16:38 Absolute Gran (auto) Cancelled 04/02/25 15:24 Nucleated RBC % (auto) 0 % 04/02/25 16:38 Nucleated RBCs # 0.0 /100WBC 04/02/25 16:38 Sodium 141 mmol/L (136-145) 04/02/25 16:38 Potassium 3.9 mmol/L (3.5-5.1) 04/02/25 16:38 Chloride 97 mmol/L (98-107) L 04/02/25 16:38 Carbon Dioxide 31 mmol/L (22-29) H 04/02/25 16:38 Anion Gap 16.9 (5-19) 04/02/25 16:38 BUN 11 mg/dL (6-20) 04/02/25 16:38 Creatinine 0.8 mg/dL (0.5-0.9) 04/02/25 16:38 GFR Calculation 76.2 mL/min (90-130) L 04/02/25 16:38 Glucose 85 mg/dL (65-115) 04/02/25 16:38 Calculated Osmolality 291 mOsm/kg (285-295) 04/02/25 16:38 Calcium 8.5 mg/dL (8.5-10.5) 04/02/25 16:38 Total Bilirubin 0.3 mg/dL (0.15-1.2) 04/02/25 16:38 AST 18 U/L (0-32) 04/02/25 16:38 ALT 15 U/L (0-33) 04/02/25 16:38 Alkaline Phosphatase 62 U/L (35-105) 04/02/25 16:38 Total Protein 7.6 g/dL (6.6-8.7) 04/02/25 16:38 Albumin 3.9 g/dL (3.5-5.2) 04/02/25 16:38 Globulin 3.7 g/dL (1.3-4.6) 04/02/25 16:38 Urine Color Yellow (Yellow) 04/02/25 16:06 Urine Appearance Clear (CLEAR) 04/02/25 16:06 Urine pH 7.0 (5-7) 04/02/25 16:06 Ur Specific [place] 1.014 (1.005-1.030) 04/02/25 16:06 Urine Protein Negative (Negative) 04/02/25 16:06 Urine Glucose (UA) Negative (Normal) 04/02/25 16:06 Urine Ketones Negative (Negative) 04/02/25 16:06 Urine Blood Negative (Negative) 04/02/25 16:06 Urine Nitrate Negative (Negative) 04/02/25 16:06 Urine Bilirubin Negative (Negative) 04/02/25 16:06 Urine Urobilinogen 1.0 mg/dL (Negative) 04/02/25 16:06 Ur Leukocyte Esterase Negative (Negative) 04/02/25 16:06 Urine RBC 0-2 /hpf (0-2) 04/02/25 16:06 Urine WBC 0-5 /hpf (0-5) 04/02/25 16:06 Ur Squamous Epith Cells 0-5 /hpf (0-5) 04/02/25 16:06 Amorphous Sediment Not Reportable 04/02/25 16:06 Urine Bacteria None seen /hpf (NONE) 04/02/25 16:06 Hyaline Casts 1.65 /lpf 04/02/25 16:06 All radiology interpretation(s) finalized by discharge Discharge Plan Discharge Patient Disposition: Home Clinical Impression: Community acquired pneumonia Qualifiers: Laterality: right Lung location: middle lobe of lung Qualified Code(s): J18.9 - Pneumonia, unspecified organism Condition: Stable Prescriptions: New levofloxacin 750 mg tablet 750 mg PO DAILY 10 Days Qty: 10 0RF No Action cholecalciferol (vitamin D3) 50 mcg (2,000 unit) capsule 50 mcg PO DAILY divalproex [Depakote] 500 mg tablet,delayed release (DR/EC) 500 mg PO .7 pm Qty: 30 6RF Rx Instructions: Take one tablet at 7 pm oxybutynin chloride 5 mg tablet 5 mg PO BID Qty: 60 2RF montelukast 10 mg tablet 10 mg PO BEDTIME Qty: 30 0RF Rx Instructions: Take 1 tablet by mouth once daily amlodipine [Norvasc] 2.5 mg tablet 2.5 mg PO DAILY Qty: 30 5RF hydrochlorothiazide 25 mg tablet 25 mg PO DAILY Qty: 30 2RF levothyroxine 100 mcg tablet 100 mcg PO DAILY Qty: 30 2RF metoprolol succinate 25 mg tablet extended release 24 hr 25 mg PO BEDTIME Qty: 30 2RF albuterol sulfate [Ventolin HFA] 90 mcg/actuation HFA aerosol inhaler 2 puff inhalation Q6H PRN (Reason: shortness of breath or wheezing) Qty: 8.5 3RF triamcinolone acetonide 0.1 % cream 1 applic topical TID PRN (Reason: Itching) guaifenesin [Robitussin Chest Congestion] 100 mg/5 mL Liquid 200 mg PO Q4H PRN (Reason: Cough) Discharge Orders: Discharge ED (Routine); Ordered 04/02/25 Ordered By: Oliver Lambert Referrals: Maria M Luna NP [Primary Care Provider, [facility]] Discharge Diet: Advance as tolerated Discharge Activity: Resume usual activity Patient Instructions: Opioid Safety, Pain Management Activity Restrictions/Additional Instructions: Please follow-up with your primary care physician for follow-up on your pneumonia. Please return the emergency department any new or worsening symptoms Print Language: Italian Coding Level of Care Code ED Traffic Safety Administrator for Darian Villarreal
[2025-04-02 16:26] LABS: Bilirubin Urine Negative (Negative); Blood Urine Negative (Negative); Glucose Urine UA Negative (Normal); Ketones Urine Negative (Negative); Leukocyte Esterase Urine Negative (Negative); Nitrate Urine Negative (Negative); Protein Urine Negative (Negative); Specific Gravity, Urine 1.014 (1.005-1.030); Urine Appearance Clear (CLEAR); Urine Color Yellow (Yellow)
[2025-04-02 16:39] LABS: Add Urine Microscopic? YES; Bacteria Urine None Seen /hpf; Hyaline Casts Urine 1.65 /lpf; RBC Urine 0-2 /hpf (0-2); Squamous Epithelial Cell Urine 0-5 /hpf (0-5); WBC Urine 0-5 /hpf (0-5)
[2025-04-02 16:52] LABS: Basophils % 0.8 %; Eosinophils # 0.1 10^3/uL (0.0-0.8); Eosinophils % 1.9 %; Hematocrit 43.2 % (36-47); Lymphocytes # 1.1 10^3/uL (0.8-4.8); Lymphocytes % 19.9 %; Mean Corpuscular HGB Conc 31.9 g/dL (30-55); Mean Corpuscular Hemoglobin 31.3 pg (27-33); Mean Platelet Volume 11.2 fL (7.4-10.4); Monocytes # 0.9 10^3/uL (0.2-0.9); Monocytes % 16.3 %; Neutrophils # 3.25 10^3/uL (1.8-7.7); Neutrophils % 60.9 %; Nucleated Red Blood Cells % 0 %; Platelet Count 245 10^3/cmm (157-399); Red Blood Count 4.41 10^6/uL (3.85-5.65); Red Cell Distribution Width 14.2 % (12.1-15.1); White Blood Count 5.33 10^3/uL (3.29-11.43)
[2025-04-02 17:45] LABS: Alanine Aminotransferase 15 U/L (0-33); Albumin Level 3.9 g/dL (3.5-5.2); Alkaline Phosphatase 62 U/L (35-105); Anion Gap 16.9 (5-19); Aspartate Amino Transferase 18 U/L (0-32); Blood Urea Nitrogen 11 mg/dL (6-20); Calcium 8.5 mg/dL (8.5-10.5); Carbon Dioxide 31 mmol/L (22-29); Chloride 97 mmol/L (98-107); Creatinine Clr Calc Pharmacy 123.7466; Globulin 3.7 g/dL (1.3-4.6); Glomerular Filtration Rate 76.2 mL/min (90-130); Glucose 85 mg/dL (65-115); Osmolality Calculated 291 mOsm/kg (285-295); Potassium 3.9 mmol/L (3.5-5.1); Sodium 141 mmol/L (136-145); Total Bilirubin 0.3 mg/dL (0.15-1.2); Total Protein 7.6 g/dL (6.6-8.7)
--- NOTE | 2025-04-02 20:16 | CTR_ITS ---
PROCEDURE INFORMATION: Exam: CT Chest With Contrast; Diagnostic Exam date and time: 04/02/2025 8:30 PM Age: 49 years old Clinical indication: Cough; Prior surgery; Surgery date: 6+ months; Surgery type: Lt lung removal; Additional info: Cough with abnormal chest x-ray TECHNIQUE: Imaging protocol: Diagnostic computed tomography of the chest with contrast. Radiation optimization: All CT scans at this facility use at least one of these dose optimization techniques: automated exposure control; mA and/or kV adjustment per patient size (includes targeted exams where dose is matched to clinical indication); or iterative reconstruction. Contrast material: OMNIPAQUE 350; Contrast volume: 100 ml; Contrast route: INTRAVENOUS (IV); COMPARISON: CR XR chest 1V portable [id number] 04/02/2025 2:31 PM RADIATION DOSE METRICS: Total DLP (mGy-cm): 776.89 FINDINGS: Lungs: Status post left pneumonectomy. Mild patchy ground-glass opacities with areas of tree-in-bud nodularity in the right upper lobe. Focal areas of consolidation along the medial basal right lower lobe with bandlike opacities in the right middle lobe. Scattered areas of mild mosaic attenuation in the right lung. Pleural spaces: Unremarkable. No pneumothorax. No pleural effusion. Heart: Unremarkable. No cardiomegaly. No pericardial effusion. Mediastinal space: Leftward mediastinal shift due to left hemithoracic volume loss. Lymph nodes: Subcarinal lymph node measures 1.5 cm short axis. Right hilar lymph nodes measure up to 1.1 cm short axis. Vasculature: The main pulmonary artery measures 4.0 cm in caliber. Liver: Hepatic steatosis. Gallbladder and biliary ducts: Status post cholecystectomy. Spleen: The spleen measures 15 cm AP. Bones/joints: Partial resection of the left posterior 6th rib Soft tissues: Unremarkable. CT/CT chest w con* [id number] IMPRESSION: 1. Status post left pneumonectomy with leftward mediastinal shift from left hemithoracic volume loss. 2. Patchy ground-glass opacities and tree-in-bud nodularity in the right lung likely represent atypical infection/inflammation. Focal consolidation in the medial right lower lobe could also represent infection. Consider imaging follow-up after clinical treatment to document resolution. 3. Mildly enlarged mediastinal and right hilar lymph nodes may be reactive. Attention on follow-up. 4. Mild mosaic attenuation in the right lung could represent mild edema and/or atypical infection in the acute setting common but findings can also be seen with air trapping from chronic small airways disease. 5. Dilated main pulmonary artery can be seen with pulmonary arterial hypertension. 6. Splenomegaly. 7. Hepatic steatosis.
[2025-04-02] MEDS: iohexol 350 mg/mL 500 mL Btl (per mL) IV (20:33)
== END 2025-04-02 22:17 | disposition home or self-care (01) ==
PROVIDERS: Family Medicine; Emergency Provider General Practice
DX: J18.9 Pneumonia, unspecified organism (principal); I10 Essential (primary) hypertension; E03.9 Hypothyroidism, unspecified; Z90.2 Acquired absence of lung [part of]
CPT/HCPCS: 36415; 71045; 71260; 80053; 81001; 85025; 87400; 87426; 93005; 99285

== ENCOUNTER 2025-04-27 07:32 | Outpatient (CLI) | payer BC, SELFPAY ==
[2025-04-02 10:39] VITALS: BP 126/76; BMI 56.9
--- NOTE | 2025-04-27 08:30 | CT_ITS ---
WS: [id number] CT chest w con* [id number] HISTORY: abnormal ct of chest TECHNIQUE: Axial imaging performed through the thorax. Coronal and sagittal reformats are submitted. All CT scans at [facility] use at least one of these dose optimization techniques: automated exposure control; mA and/or kV adjustment per patient size (includes targeted exams where dose is matched to clinical indication); or iterative reconstruction. CONTRAST: Omnipaque 350; 100 mL IV. DLP: 837.71 mGy.cm COMPARISON: 04/02/2025 chest radiograph 04/02/2025 Lungs and central airway: Status post LEFT pneumonectomy. Post operative changes at the LEFT hilum. Very mild pleural thickening similar to prior studies. LEFT deviation and mediastinal shift from volume loss in the LEFT thorax. Improved aeration throughout the RIGHT lung. Area of consolidation along the medial RIGHT lower lobe has resolved. The areas of mosaic attenuation and heterogeneity and groundglass and tree-in-bud airspace disease has nearly completely resolved. Pleura: Normal. No pleural effusion. Heart and pericardium: Cardiac chambers shifted to the LEFT due to volume loss in the LEFT thorax. No cardiomegaly. Mediastinum and taylor: Mildly prominent lymphoid tissue at the hilum. There are a few small lymph nodes in the LEFT mediastinal fat. Vessels: Normal size aorta. Pulmonary artery is mildly dilated to 3.6 cm in diameter. Chest wall and lower neck: LEFT thyroid nodule 1.3 cm. Upper abdomen: Bilateral adrenal nodules. RIGHT adrenal nodule is larger at 1.8 cm. No change since 04/02/2025. Osseous structures: Partial resection of the posterior LEFT sixth rib. CT/CT chest w con* [id number] IMPRESSION: 1. Status post LEFT pneumonectomy. 2. Stable LEFT mediastinal shift from volume loss in the LEFT thorax. 3. Significant improvement with near complete resolution of the RIGHT pulmonar y opacifications previously described. No residual pneumonia. 4. Enlarged RIGHT pulmonary artery. 5. Bilateral adrenal masses. These can be further evaluated by CT or MRI with adrenal mass protocol (with and without contrast. 6. No mediastinal or hilar adenopathy. 7. LEFT thyroid nodule. 8. Prior cholecystectomy.
== END 2025-04-27 07:33 | disposition home or self-care (01) ==
DX: E27.9 Disorder of adrenal gland, unspecified (principal); E04.1 Nontoxic single thyroid nodule
CPT/HCPCS: 71260

== ENCOUNTER 2025-05-11 16:16 | Outpatient (CLI) | payer BC, SELFPAY ==
[2025-04-02 10:39] VITALS: BP 126/76; BMI 56.9
--- NOTE | 2025-05-11 16:30 | USR_ITS ---
PROCEDURE INFORMATION: Exam: US Soft Tissue Head and Neck, Thyroid Exam date and time: 05/11/2025 4:53 PM Age: 49 years old Clinical indication: Abnormal findings; Abnormal radiologic study of neck; Additional info: Thyroid nodule seen on CT TECHNIQUE: Imaging protocol: Real-time ultrasound scan of the neck with image documentation. Exam focused on the thyroid. COMPARISON: CT chest w con* [id number] 04/27/2025 8:14 AM FINDINGS: Right thyroid lobe: No nodules. Left thyroid lobe: Mid lobe 11 x 11 x 16 mm small hypoechoic solid nodule. This contains internal small flecks of potential microcalcifications. Left lower thyroid 13 x 7 x 8 mm mildly complex hypoechoic/cystic nodule, TR2. Isthmus: No nodules. US/US thyroid [id number] IMPRESSION: 1. Two left thyroid nodules as described. The mid lobe one is TR3. 2. Mid lobe one is TI-RADS category TR3, Mildly Suspicious. Follow-up thyroid ultrasound at 1, 3, and 5 years is recommended. (Reference: Eitan) REFERENCES: Eitan FN, Shahla WD, Albert PATINO et al. ACR Thyroid Imaging, Reporting and Data System (TI-RADS): White Paper of the ACR TI-RADS Committee. J Am Selene Radiol. 2017; 14: 587-595.
== END 2025-05-11 16:17 | disposition home or self-care (01) ==
LOC: RAD 16:18
DX: E04.2 Nontoxic multinodular goiter (principal)
CPT/HCPCS: 76536

== ENCOUNTER 2025-06-02 06:13 | Outpatient (CLI) | payer BC, SELFPAY ==
[2025-04-02 10:39] VITALS: BP 126/76; BMI 56.9
--- NOTE | 2025-06-02 06:30 | MR_ITS ---
WS: [id number] MRI/MRCP OF THE ABDOMEN WITHOUT GADOLINIUM ENHANCEMENT TECHNIQUE: Coronal T2 Fase BH, Axial T2 Fase BH, Axial T2 FS BH, Zxial 3D Rubin BH, Axial DWI BH, 2D MRCP Radial BH, 3D MRCP (Resp), and Axial 3D Dyn BH Post sequences. CLINICAL INFORMATION: adrenal mass found on CT COMPARISON: CT chest 04/27/2025 FINDINGS: Bilateral adrenal nodules RIGHT greater than LEFT with signal dropout on the out of phase imaging compatible with adrenal adenomas. No abnormal enhancement. Small bilateral renal cysts. Prior cholecystectomy. Small esophageal hiatal hernia. Upper abdominal aorta is patent. Celiac and SMA are patent. Fatty atrophy of the pancreas. MR/MR adrenals wo/w con [id number] Impression: 1. RIGHT adrenal nodule with signal characteristics compatible with adrenal ad enoma measuring 1.8 cm. 2. 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 LEFT adrenal nodule measures 1.0 cm
== END 2025-06-02 06:14 | disposition home or self-care (01) ==
LOC: RAD 06:14
DX: E27.8 Other specified disorders of adrenal gland (principal)
CPT/HCPCS: 74183

== ENCOUNTER 2025-07-06 08:16 | Outpatient (CLI) | payer BC, SELFPAY ==
[2025-04-02 10:39] VITALS: BP 126/76; BMI 56.9
[2025-07-06 09:44] LABS: Alanine Aminotransferase 13 U/L (0-33); Albumin Level 3.9 g/dL (3.5-5.2); Alkaline Phosphatase 71 U/L (35-105); Anion Gap 14.9 (5-19); Aspartate Amino Transferase 13 U/L (0-32); Blood Urea Nitrogen 10 mg/dL (6-20); Calcium 8.8 mg/dL (8.5-10.5); Carbon Dioxide 29 mmol/L (22-29); Chloride 100 mmol/L (98-107); Globulin 3.3 g/dL (1.3-4.6); Glucose 105 mg/dL (65-115); Osmolality Calculated 289 mOsm/kg (285-295); Potassium 3.9 mmol/L (3.5-5.1); Sodium 140 mmol/L (136-145); Total Protein 7.2 g/dL (6.6-8.7)
== END 2025-07-06 08:17 | disposition home or self-care (01) ==
PROVIDERS: Visit Provider Internal Medicine
DX: E04.2 Nontoxic multinodular goiter (principal); E27.8 Other specified disorders of adrenal gland
CPT/HCPCS: 36415; 80053; 82088; 84244

== ENCOUNTER 2025-07-07 08:15 | Outpatient (CLI) | payer BC, SELFPAY ==
[2025-04-02 10:39] VITALS: BP 126/76; BMI 56.9
[2025-07-07 11:13] LABS: Total Volume Urine 900 ml
[2025-07-07 11:18] LABS: Creatinine 24 Hour Urine 1629.0 mg/dL (601-1689)
== END 2025-07-07 08:16 | disposition home or self-care (01) ==
PROVIDERS: Visit Provider Internal Medicine
DX: E04.2 Nontoxic multinodular goiter (principal); E27.8 Other specified disorders of adrenal gland
CPT/HCPCS: 82384; 82530; 82570

== ENCOUNTER → 2025-10-20 16:20 | Outpatient (BNVA) | payer BC, SELFPAY ==
[2025-04-02 10:39] VITALS: BP 126/76; BMI 56.9
== END ==
PROVIDERS: Visit Provider Nurse Practitioner Psychiatric/Mental Health
DX: E55.9 Vitamin D deficiency, unspecified (principal); Z79.899 Other long term (current) drug therapy
CPT/HCPCS: 80053; 80164; 82306